=== PATIENT | male | born 1970 | race Caucasian/White ===

== ENCOUNTER 2019-01-15 04:49 | Emergency (ER) | payer BC, OTHER ==
[~2019-01-15] VITALS: Ht 177.8 cm; Wt 92.4 kg
[~2019-01-15 04:49] MED LIST: CIPR-173; SOMA; SULF1TAB23; XANAX
[2019-01-15 04:55] VITALS: BP 175/99; PULSE 118; RESP 20; Ht 177.8 cm; Wt 92.4 kg
[2019-01-15] MEDS ORDERED: LIDOCAINE 1% (MPF) 5 ML VIAL INJ ONE (06:30)
[2019-01-15] MEDS ORDERED: HYDR-4011 PO (06:47)
[2019-01-15] MEDS ORDERED: CEPH-443 PO (06:47)
--- NOTE | 2019-01-15 07:18 | ERD ---
ER Documentation Chief Complaint Chief Complaint upper lip laceration, tripped and fell about 2 hours ago HPI 48-year-old male presenting with laceration to right upper lip. Patient tripped on a branch and fell on a stump. Patient denies any loose teeth. He denies any facial pain. Denies visual deficits. Patient is up-to-date on tetanus shot. Denies other medical problems. NKDA. Surgical history denies. Social history denies ROS All systems reviewed and are negative except as per history of present illness. Medications Home Meds Active Scripts Hydrocodone/Acetaminophen ([place] 5-325 Tablet) 1 Each Tablet, 1 TAB PO Q6H PRN for PAIN, #7 TAB Prov:ERICA DIXON PA-C 01/15/19 Cephalexin* (Keflex*) 500 Mg Capsule, 500 MG PO QID for 7 Days, CAP Prov:ERICA DIXON PA-C 01/15/19 Reported Medications Ciprofloxacin Hcl (Cipro) 500 Mg Tablet 03/28/11 Trimethoprim/Sulfamethoxazole* (Bactrim* SS) 1 Tab Tab 03/28/11 [Xanax] No Conflict Check 03/26/11 [Soma] No Conflict Check 03/26/11 Allergies Allergies: Coded Allergies: No Known Drug Allergies (Verified Allergy, Mild, 03/28/11) PMhx/Soc History of Surgery: No Anesthesia Reaction: No Hx Neurological Disorder: No Hx Respiratory Disorders: No Hx Cardiac Disorders: No Hx Psychiatric Problems: No Hx Miscellaneous Medical Probl: No Hx Alcohol Use: No Hx Substance Use: No Hx Tobacco Use: No Smoking Status: Never smoker FmHx Family History: No diabetes, No coronary disease, No other Physical Exam Vitals Vital Signs Date Temp Pulse Resp B/P (MAP) Pulse Ox O2 O2 Flow FiO2 Time Delivery Rate 01/15/19 97.7 118 20 175/99 97 04:55 (124) Physical Exam GENERAL: The patient is well-appearing, well-nourished, in no acute distress HEENT: Atraumatic. Conjunctivae are pink. Pupils equal, round, and reactive to light. There is no scleral icterus. Tympanic membranes clear bilaterally. Oropharynx clear. No loose dentition NECK: C-spine is soft and supple. There is no meningismus. There is no cervical lymphadenopathy. CHEST: Clear to auscultation bilaterally. There are no rales, wheezes or rhonchi. HEART: Regular rate and rhythm. No murmurs, clicks, rubs or gallops. NEUROLOGIC: Alert and oriented. Cranial nerves II through XII intact. Motor strength in all 4 extremities with 5 out of 5 strength. Sensation grossly intact. Normal speech and gait. SKIN: 1 cm flap laceration noted to the right upper lip crossing the vermilion border. No active bleeding. No foreign bodies. Results 24 hrs Current Medications Medications Dose Sig/Marcia Start Time Status Last (Trade) Ordered Route PRN Stop Time Admin Dose Reason Admin Lidocaine 5 ml ONCE ONCE 01/15/19 DC (Xylocaine INJ 06:30 1% (Mpf)) 01/15/19 06:31 Procedures/MDM Laceration Repair by me: Anesthesia: 1% lidocaine locally Location: Right upper lip Tendon/Joint/Nerves: No injury Foreign body: None detected after copious irrigation and exploration Technique: 5 5.0 N Simple Interrupted Sutures Complexity: No subcutaneous sutures/mucosal repair/edge excision Post Closure Length: 1 cm Patient's bleeding was easily controlled in the department and there is no indication of anemia. No evidence of compartment syndrome, neurologic injury, vascular injury, open joint, tendon laceration, or foreign body. Patient is appropriate for outpatient follow up. 48 hour wound check. Scar minimization instructions given. MDM: 48-year-old male presenting with laceration to right upper lip. I have low suspicion for bony injury. I have low suspicion for dental injury. Patient will return in 2 days for wound check. Site was closed appropriately. Patient is recommended to follow-up with primary care and return to the ER symptoms change or worsen. All questions answered at discharge Departure Diagnosis: Primary Impression: Laceration Condition: Stable Patient Instructions: Laceration, Face, Suture Or Tape (Child) Referrals: [facility] YOU HAVE RECEIVED A MEDICAL SCREENING EXAM AND THE RESULTS INDICATE THAT YOU DO NOT HAVE A CONDITION THAT REQUIRES URGENT TREATMENT IN THE EMERGENCY DEPARTMENT. FURTHER EVALUATION AND TREATMENT OF YOUR CONDITION CAN WAIT UNTIL YOU ARE SEEN IN YOUR DOCTORS OFFICE WITHIN THE NEXT 1-2 DAYS. IT IS YOUR RESPONSIBILITY TO MAKE AN APPOINTMENT FOR FOLOW-UP CARE. IF YOU HAVE A PRIMARY DOCTOR --you should call your primary doctor and schedule an appointment IF YOU DO NOT HAVE A PRIMARY DOCTOR YOU CAN CALL OUR PHYSICIAN REFERRAL HOTLINE AT IF YOU CAN NOT AFFORD TO SEE A PHYSICIAN YOU CAN CHOSE FROM THE FOLLOWING [facility] [address] [facility] [address] [facility] [place] [address] [facility] [address] [facility] [facility] [address] [facility]. [address] Additional Instructions: FOLLOW UP WITH YOUR PRIMARY CARE PHYSICIAN TOMORROW.Return to this facility if you are not improving as expected. ERICA DIXON PA-C Jan 15, 2019 07:18
== END 2019-01-15 07:18 | disposition home or self-care (01) ==
LOC: FTE 04:49
DX: S01.511A Laceration without foreign body of lip, initial encounter (principal); W01.0XXA Fall on same level from slipping, tripping and stumbling without subsequent striking against object, initial encounter; Y92.9 Unspecified place or not applicable
CPT/HCPCS: 12011; Z7502; Z7610

== ENCOUNTER 2019-01-25 01:52 | Emergency (ER) | payer OTHER ==
[~2019-01-25] VITALS: Ht 177.8 cm; Wt 89.8 kg
[~2019-01-25 01:52] MED LIST changes: +CEPH-443 PO; +HYDR-4011 PO
[2019-01-25 01:55] VITALS: BP 169/89; PULSE 96; RESP 18; Ht 177.8 cm; Wt 89.8 kg
--- NOTE | 2019-01-25 02:28 | ERD ---
ER Documentation Chief Complaint Chief Complaint suture removal, was here about 10 days ago for lip lac repair HPI This is a 48-year-old male who presents to emerge department for suture removal to his right upper lip. Repair was done 10 days ago. Denies headache, head injury, loss of consciousness, dizziness, neck pain, neck stiffness, throat pain, difficulty swallowing, difficulty breathing lying flat, shoulder pain, chest pain, back pain, abdominal pain, nausea, vomiting, constipation, diarrhea, urinary symptoms, loss of bowel and bladder control, trauma, injury, falls, difficulty walking due to pain, numbness or tingling sensation, calf pain, recent travel, recent major surgery in the last 3 weeks, calf pain, recent long travel, recent exposure to any illness, recent antibiotic use in the last 3 months, fever, chills, seizures. Past medical history: Surgical history: Social: Denies smoking, use of alcoholic beverages, use of illegal drugs. ROS All systems reviewed and are negative except as per history of present illness. Medications Home Meds Active Scripts Hydrocodone/Acetaminophen ([place] 5-325 Tablet) 1 Each Tablet, 1 TAB PO Q6H PRN for PAIN, #7 TAB Prov:ERICA DIXON PA-C 01/15/19 Cephalexin* (Keflex*) 500 Mg Capsule, 500 MG PO QID for 7 Days, CAP Prov:ERICA DIXON PA-C 01/15/19 Reported Medications Ciprofloxacin Hcl (Cipro) 500 Mg Tablet 03/28/11 Trimethoprim/Sulfamethoxazole* (Bactrim* SS) 1 Tab Tab 03/28/11 [Xanax] No Conflict Check 03/26/11 [Soma] No Conflict Check 03/26/11 Allergies Allergies: Coded Allergies: No Known Drug Allergies (Verified Allergy, Mild, 03/28/11) PMhx/Soc Medical and Surgical Hx: pt denies Medical Hx, pt denies Surgical Hx History of Surgery: No Anesthesia Reaction: No Hx Neurological Disorder: No Hx Respiratory Disorders: No Hx Cardiac Disorders: No Hx Psychiatric Problems: No Hx Miscellaneous Medical Probl: No Hx Alcohol Use: No Hx Substance Use: No Hx Tobacco Use: No Smoking Status: Never smoker Physical Exam Vitals Physical Exam Const: No acute distress Head: Atraumatic Eyes: Normal Conjunctiva ENT: Normal External Ears, Nose and Mouth. Right: Sutures. No dehiscence. No bleeding. No discharge. No signs of infection. Neck: Full range of motion. No meningismus. Resp: Clear to auscultation bilaterally Cardio: Regular rate and rhythm, no murmurs Abd: Soft, non tender, non distended. Normal bowel sounds Skin: No petechiae or rashes Back: No midline or flank tenderness Ext: No cyanosis, or edema Neur: Awake and alert. No neurological deficits. Psych: Normal Mood and Affect Procedures/MDM Diagnostic tests: Clinical exam. Procedure: Remove sutures. Treatment: Removal of sutures. Re-evaluation: No active bleeding. No dehiscence. No signs of infection. Differential diagnosis I have low suspicion for sepsis, dehiscence, hemorrhage, skin infection. Final diagnosis: Removal of suture. Prescription: Not applicable. Follow-up with PCP in the next 24-48 hours. Come back here in the emergency department for any new symptoms or any worsening symptoms. All questions and concerns were answered. Patient and family members verbalized understanding and agreed with plan of care. Hemodynamically stable on discharge. Repair was done 10 days ago. Departure Diagnosis: Primary Impression: Encounter for removal of sutures Condition: Stable Additional Instructions: Follow-up with PCP in the next 24-48 hours. Come back here in the emergency department for any new symptoms or any worsening symptoms. LEXIE MATTHEW Jan 25, 2019 02:28
== END 2019-01-25 02:52 | disposition home or self-care (01) ==
LOC: FTE 01:52
DX: Z48.02 Encounter for removal of sutures (principal)
CPT/HCPCS: 99281